=== PATIENT | female | born 1985 | race Caucasian/White ===

== ENCOUNTER 2019-01-24 12:50 | Inpatient (IN) | payer MEDICAID ==
[~2019-01-24] VITALS: Ht 157.5 cm; Wt 61.0 kg
[2019-01-24] MEDS ORDERED: PNV11TAB PO (13:24)
[2019-01-24 13:25] VITALS: BP 111/62; PULSE 63; Ht 157.5 cm; Wt 61.0 kg
[2019-01-24] MEDS: LACTATED RINGER'S 1,000 ML IV SCH ×2 (13:38→16:31)
[2019-01-24] MEDS ORDERED: TERBUTALINE 1 ML ONE (13:49)
[2019-01-24] MEDS ORDERED: TERBUTALINE 1 MG/ML INJ SC ONE (14:00)
[2019-01-24] MEDS ORDERED: OXYTOCIN 30 UNITS/LR 500 ML IV SCH ×3 (15:00→18:00)
[2019-01-24] MEDS ORDERED: LIDOCAINE 1% (MPF) 30 ML INJ INJ PRN (15:00)
[2019-01-24] MEDS ORDERED: IBUPROFEN 600 MG TAB PO PRN (15:00)
[2019-01-24] MEDS ORDERED: BUTORPHANOL 2 MG INJ IV PRN (15:00)
[2019-01-24] MEDS ORDERED: MISOPROSTOL 200 MCG TAB PR PRN (15:00)
[2019-01-24] MEDS ORDERED: OXYTOCIN 30 UNITS/LR 500 ML IV PRN (15:00)
[2019-01-24] MEDS ORDERED: METHYLERGONOVINE 0.2 MG INJ IM PRN (15:00)
[2019-01-24] MEDS ORDERED: CARBOPROST 250 MCG INJ IM PRN (15:00)
--- NOTE | 2019-01-24 15:04 | HP ---
Date/Time of Note Date/Time of Note DATE: 01/24/19 TIME: 14:34 OB - History Hx of Present Free Text/Dictation Patient is a 33-year-old 2 para 1 at 37 weeks and 1 day of gestation with estimated date of delivery February 13, 2019 She presents with chief complaint of vaginal discharge and leaking fluid Patient reports uterine contractions, reports positive movement and denies vaginal bleeding Estimated Due Date: Feb 13, 2019 : 2 Para: 1 Care: Good Care Obstetrical Complications: None Medical Complications: None Past Family/Social History * Past Medical, Surgical, Family and Obstetric Histories reviewed from chart. OB Admission Exam Vital Signs Vital Signs Vital Signs Date Temp Pulse Resp B/P (MAP) Pulse Ox O2 O2 Flow FiO2 Time Delivery Rate 01/24/19 98.2 63 111/62 13:25 (78) Physical Exam HEENT: WNL Heart: Rhythm Normal Lungs: Clear, Equal Abdomen: WNL Extremities: Normal Reflexes: Normal Cervical Dilatation: None Membranes: Intact Heart Rate: 150's Accelerations: Accelerations Present Decelerations: Variable Decelerations Varibility: Moderate Contractions on Admission: < 5 Minutes Apart Intensity: Moderate Last 72 hours Lab Results CBC & BMP 01/24/19 13:35 Liver Function Test 01/24/19 13:35 Alanine Aminotransferase (ALT/SGPT) 14 Albumin 3.1 L Alkaline Phosphatase 124 H Aspartate Amino Transf (AST/SGOT) 21 Direct Bilirubin 0.00 Total Protein 6.5 Urine Results - 72 Hrs Test 01/24/19 13:15 Urine Color YELLOW (YELLOW) Urine Clarity CLEAR (CLEAR) Urine pH 7.0 (5.0-9.0) Urine Specific [place] 1.013 (1.003-1.030) Urine Ketones NEGATIVE mg/dL (NEGATIVE) Urine Nitrite NEGATIVE mg/dL (NEGATIVE) Urine Bilirubin NEGATIVE mg/dL (NEGATIVE) Urine Urobilinogen NEGATIVE mg/dL (NEGATIVE) Urine Leukocyte Esterase NEGATIVE [place]/ul Urine Hemoglobin NEGATIVE mg/dL (NEGATIVE) Urine Glucose NEGATIVE mg/dL (NEGATIVE) Urine Total Protein NEGATIVE mg/dl (NEGATIVE) PROCEDURE: US OB. CLINICAL INDICATION: Size and dates , tachycardia TECHNIQUE: Multiple sonographic images of the pelvis and gravid uterus were obtained. The images were reviewed on a PACS workstation. COMPARISON: No prior studies are available for comparison. FINDINGS: Gestation: Single live intrauterine gestation. Cardiac activity: 191 beats per minute. Presentation: Vertex. Placenta: Location: Anterior. Appearance: No previa or abruption. Measurements: BPD = 8.7 cm, 35 weeks and 2 days HC = 33 cm, 37 weeks and 4 days AC = 34.1 cm, 38 weeks and 0 days FL = 7.2 cm, 36 weeks and 6 days Gestational Age: AUA estimated gestational age: 37 weeks 0 days LMP estimated gestational age: 37 weeks 1 day AUA estimated date of delivery: 02/14/19 The EFW = 3195 g, 63.8%ile based on LMP age. RPTAT: AA IMPRESSION: Single live intrauterine gestation of 37 weeks 0 days by ultrasound criteria. tachycardia. .Tevin Tidwell MD, MD Date Time Electronically viewed and signed by .Tevin Tidwell MD, MD on 01/24/2019 14:04 .S/ CC: CHONG SUTTON MD [phone] PROCEDURE: US OB biophysical profile. CLINICAL INDICATION: decreased movements, tachycardia TECHNIQUE: Multiple sonographic images of the pelvis were obtained. The images were reviewed on a PACS workstation. COMPARISON: No prior studies are available for comparison. FINDINGS: There is a single live intrauterine gestation. Cardiac activity is present with 173 beats per minute. There is a vertex presentation. The placenta is anterior. There is no evidence of placental abruption. There is a normal amount of amniotic fluid with an AURY = 8.9 cm. Biophysical profile: movement 2/2 tone 2/2. breathing 2/2 AURY 2/2 Total 07/02 RPTAT: AA . IMPRESSION: Normal biophysical profile. . .Tevin Tidwell MD, MD Date Time Electronically viewed and signed by .Tevin Tidwell MD, MD on 01/24/2019 14:10 .S/ CC: CHONG SUTTON MD [phone] OB Assessment/Plan Reason for admission: other ( heart rate tracing category 2) Plan: Expectant Management Other plan: Admit to labor and delivery Continuous IV fluids Continuous heart rate monitoring Patient counseled if tachycardia and deceleration continues will proceed with delivery Copies To: CC: ARIELLE HERNANDEZ MD ; CHONG SUTTON MD Jan 24, 2019 15:01
[2019-01-24] MEDS ORDERED: AMPICILLIN 2 GM/NS (PMX) 100 ML IV ONE (18:00)
[2019-01-24] MEDS: AMPICILLIN 1 GM/NS (PMX) 50 ML IV SCH (22:01)
[2019-01-25] MEDS: LACTATED RINGER'S 1,000 ML IV SCH ×2 (01:51→08:41)
[2019-01-25] MEDS: AMPICILLIN 1 GM/NS (PMX) 50 ML IV SCH ×2 (02:21→06:27)
--- NOTE | 2019-01-25 09:22 | QN ---
Documentation Comment patient had a precipitous vaginal delivery by laborist medical education manager ( Dr. Worthy). I was present within half hour that I was call. patient had a viable fetus 8/9 with second degree vaginal laceration repair. No complication I will write the post op nohelia. ARIELLE HERNANDEZ MD Jan 25, 2019 09:22
[2019-01-25] MEDS ORDERED: OXYTOCIN 30 UNITS/LR 500 ML IV SCH (09:23)
[2019-01-25] MEDS ORDERED: ONDANSETRON 4 MG INJ IV PRN (09:30)
[2019-01-25] MEDS ORDERED: MISOPROSTOL 200 MCG TAB PR PRN (09:30)
[2019-01-25] MEDS ORDERED: DIPHENHYDRAMINE 25 MG CAP PO PRN (09:30)
[2019-01-25] MEDS ORDERED: OXYTOCIN 30 UNITS/LR 500 ML IV PRN (09:30)
[2019-01-25] MEDS ORDERED: METHYLERGONOVINE 0.2 MG INJ IM PRN (09:30)
[2019-01-25] MEDS ORDERED: WITCH HAZEL/GLYCERIN PAD PR PRN (09:30)
[2019-01-25] MEDS ORDERED: NACL 0.9% 3 ML SYG IV SCH (09:30)
[2019-01-25] MEDS ORDERED: BENZOCAINE 20% 56 ML SPRAY TOP PRN (09:30)
[2019-01-25] MEDS ORDERED: CARBOPROST 250 MCG INJ IM PRN (09:30)
[2019-01-25] MEDS ORDERED: OXYCODONE/ASPIRIN (4.88/325) TAB PO PRN ×2 (09:30)
--- NOTE | 2019-01-25 09:32 | LDN ---
Date/Time of Note Date/Time of Note DATE: 01/25/19 TIME: 09:31 Delivery Summary 37+ Placenta Delivered: Spontaneously Meconium: none Episiotomy: No Perineal laceration: 2 Anesthesia type: Local (200) Estimated blood loss: 200 Sponge & Needle done & correct: Yes All needle counts correct: Yes Any foreign bodies felt in the: No Infant Delivery Information Sex Infant Sex: female Apgars 1 Minute: 8 5 Minute: 9 Suctioning Nose & mouth suctioned at cesia: Yes Delee suction performed: Yes Umbilical Cord Umbilical cord with: 3 Vessels Cord presentations: no nuchal cord Cord Blood was obtained: Yes Mother & Baby Disposition Disposition Mom & Baby to Maternity; Good: Yes Baby to NICU: No ELDER AN M.D. Jan 25, 2019 09:32
[2019-01-25 12:00] VITALS: BP 116/69; PULSE 65; RESP 20
[2019-01-25] MEDS: IBUPROFEN 600 MG TAB PO SCH ×2 (12:00→17:38)
[2019-01-25 13:00] VITALS: BP 119/69; PULSE 71; RESP 20
[2019-01-25] MEDS: LANOLIN HPA 1 PKT TOP PRN (13:33)
[2019-01-25 15:59] VITALS: BP 113/63; PULSE 62; RESP 18
[2019-01-25 19:53] VITALS: BP 117/71; PULSE 64; RESP 18
[2019-01-25] MEDS: SENNA/DOCUSATE NA (8.6MG/50MG) TAB PO SCH (20:04)
[2019-01-26] MEDS: IBUPROFEN 600 MG TAB PO SCH ×5 (01:04→23:32)
[2019-01-26 04:00] VITALS: BP 102/64; PULSE 57; RESP 19
[2019-01-26 08:00] VITALS: BP 120/52; PULSE 68; RESP 20
--- NOTE | 2019-01-26 08:45 | PD.PPDC ---
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
--- NOTE | 2019-01-26 08:46 | DS ---
Date/Time of Note Date/Time of Note DATE: 01/26/19 TIME: 08:46 Obstetrical Discharge Record Final Diagnosis Final Diagnosis: Term delivered Vaginal Delivery Obstetrical Delivery: Spontaneous, Laceration, Repaired Condition on Discharge Physical Assessment Last Vitals: stable Voiding: Yes Bowel Movement: Yes Breast: Soft, non-tender, Filling Fundus: Firm Abdomen and Incision: soft nt Calf Tenderness: No Patient Condition: Fair ARIELLE HERNANDEZ MD Jan 26, 2019 08:46
[2019-01-26] MEDS: SENNA/DOCUSATE NA (8.6MG/50MG) TAB PO SCH ×2 (09:24→21:04)
[2019-01-26] MEDS: LANOLIN HPA 1 PKT TOP PRN (12:17)
[2019-01-26 16:00] VITALS: BP 99/56; PULSE 56; RESP 18
[2019-01-26 20:05] VITALS: BP 117/61; PULSE 64; RESP 16
[2019-01-27 03:45] VITALS: BP 100/58; PULSE 55; RESP 18
[2019-01-27] MEDS: IBUPROFEN 600 MG TAB PO SCH ×2 (05:43→11:15)
[2019-01-27 08:10] VITALS: BP 102/54; PULSE 55; RESP 16
[2019-01-27] MEDS: SENNA/DOCUSATE NA (8.6MG/50MG) TAB PO SCH (08:56)
== END 2019-01-27 14:51 | disposition home or self-care (01) | DRG 807 ==
LOC: OBT 12:50 → L-D 12:50 → OBT 14:10 → L-D 14:10 → PP1 01-25 11:56
PROVIDERS: ADMIT Obstetrics & Gynecology; ATTEND Obstetrics & Gynecology
PROC: 10E0XZZ Delivery of Products of Conception, External Approach (ICD-10-PCS; principal; 2019-01-25)
PROC: 0KQM0ZZ Repair Perineum Muscle, Open Approach (ICD-10-PCS; 2019-01-25)
DX: O62.3 Precipitate labor (principal); O70.1 Second degree perineal laceration during delivery; Z37.0 Single live birth; Z3A.37 37 weeks gestation of pregnancy
CPT/HCPCS: 76815; 76818; 80053; 81003; 84112; 85014; 85018; 85025; 85610; 85730; 86592; 86850; 86900; 86901; 87086; 87340; 96360; G0463; J0290; J2590; J3105; J7120